=== PATIENT | female | born 2000 | race African-American/Black ===

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

== ENCOUNTER 2022-03-20 20:35 | Emergency (ER) | payer OTHER ==
[2022-03-20 21:14] LABS: #Eosinphils 0.2 thou/uL (0.0-0.7); #Lymphocytes 1.4 thou/uL (1.20-3.40); #Monocytes 0.3 thou/uL (0.11-0.59); #Neutrophils 3.5 thou/uL (1.40-6.50); %Basophils 0.6 % (0.0-1.0); %Lymphocytes 26.5 % (28.0-48.0); %Neutrophils 63.9 % (31.0-61.0); Hemoglobin 11.2 g/dL (12.0-16.0); Mean Corpuscular HGB CONC 34.1 g/dL (32.0-36.0); Mean Corpuscular Hemoglobin 31.7 pg (25.0-35.0); Mean Corpuscular Volume 93.1 fL (78.0-98.0); Mean Platelet Volume 6.9 fL (7.4-10.4); Platelet Count 273 thou/uL (130-400); RBC Distribution Width 11.9 % (11.5-14.5); Red Blood Cell (RBC) Count 3.55 mill/uL (4.00-5.20); White Blood Cell (WBC) Count 5.4 thou/uL (4.8-10.8)
[2022-03-20 21:35] LABS: Acetaminophen Less than 10.0 mcg/mL (10.0-30.0); Alcohol Less than 10 mg/dL (Less than 10); Salicylate Less than 8.0 mg/dL (15.0-30.0)
== END 2022-03-20 22:28 | disposition home or self-care (01) ==
LOC: ERS 20:35
DX: Z34.92 Encounter for supervision of normal pregnancy, unspecified, second trimester (principal); Z3A.16 16 weeks gestation of pregnancy
CPT/HCPCS: 36415; 76856; 80307; 84702; 85025; 93005; 93976

== ENCOUNTER 2022-05-05 14:10 | Emergency (ER) | payer OTHER | END 2022-05-05 16:20 | disposition left against medical advice (07) | LOC: ERS 14:10 | DX: Z53.21 Procedure and treatment not carried out due to patient leaving prior to being seen by health care provider (principal) | CPT/HCPCS: 76815 ==

== ENCOUNTER 2022-07-14 21:42 | Emergency (ER) | payer OTHER | END 2022-07-14 23:19 | disposition short-term general hospital (02) | LOC: ERS 21:42 | DX: O26.893 Other specified pregnancy related conditions, third trimester (principal); R10.9 Unspecified abdominal pain; Z3A.32 32 weeks gestation of pregnancy | CPT/HCPCS: 99284 ==

== ENCOUNTER 2023-01-20 16:10 | Emergency (ER) | payer OTHER | END 2023-01-20 17:07 | disposition left against medical advice (07) | LOC: ERS 16:10 | DX: F41.9 Anxiety disorder, unspecified (principal) ==

== ENCOUNTER 2023-05-21 13:10 | Emergency (ER) | payer OTHER ==
[2023-05-21] MEDS ORDERED: Ondansetron PF 4 MG/2 ML Vial ONE (14:35)
[2023-05-21] MEDS ORDERED: Morphine 4 MG/ML VIAL ONE (14:35)
[2023-05-21 14:45] LABS: #Eosinphils 0.1 thou/uL (0.0-0.7); #Monocytes 0.4 thou/uL (0.11-0.59); #Neutrophils 1.9 thou/uL (1.40-6.50); %Basophils 0.2 % (0.0-1.0); %Eosinophils 2.7 % (0.0-10.0); %Lymphocytes 40.8 % (28.0-48.0); %Monocytes 9.2 % (0.0-4.0); %Neutrophils 47.1 % (31.0-61.0); Hemoglobin 11.1 g/dL (12.0-16.0); Mean Corpuscular HGB CONC 32.8 g/dL (32.0-36.0); Mean Corpuscular Hemoglobin 29.3 pg (25.0-35.0); Mean Corpuscular Volume 89.2 fl (78.0-98.0); Mean Platelet Volume 9.8 fL (7.4-10.4); Platelet Count 296 10x3/uL (130-400); Red Blood Cell (RBC) Count 3.79 mill/uL (4.00-5.20)
[2023-05-21 15:15] LABS: ALT (SGPT) 7 U/L (8-55); AST (SGOT) 14 U/L (5-34); Alkaline Phosphatase 50 U/L (40-100); Anion Gap 12 mmol/L (10-20); BUN (Urea Nitrogen) 12 mg/dL (7.0-18.7); Bilirubin, Total 0.6 mg/dL (0.2-1.2); Calc. Creatinine Clearance 0 mL/min (70-130); Calcium 9.6 mg/dL (7.8-10.44); Carbon Dioxide 23 mmol/L (22-29); Chloride 108 mmol/L (98-107); Estimated GFR 117; Globulin 2.6 g/dL (2.4-3.5); Glucose 99 mg/dL (70-105); Lipase 22 U/L (8-78); Protein, Total 6.6 g/dL (6.0-8.3); Sodium 139 mmol/L (136-145)
[2023-05-21 15:17] LABS: BHCG - Serum Negative (NEGATIVE); Pregs Control Background? CLEAR/WHITE (CLR/WHITE); Pregs Control Bar Appear? YES (CONTROL BAR)
[2023-05-21 15:50] LABS: Bacteria/HPF None Seen HPF (None Seen); Bilirubin Negative (Negative); Blood, Urine Negative (Negative); CAUTI Indications for Culture Pelvic or flank pain; Clarity Clear (Clear); Glucose, Urine (Dipstick) Normal (Negative); Ketone, Urine Negative (Negative); Leukocyte Negative Leu/uL (Negative); Nitrite Negative (Negative); Protein, Urine (Dipstick) Negative (Neg-Trace); RBC/HPF 0-3 HPF (0-3); Urobilinogen Normal mg/dL (Less than 2); WBC/HPF 0-3 HPF (0-3); pH, Urine 7.5 (5.0-9.0)
[2023-05-21 15:56] LABS: Urine Culture Reflex No No
== END 2023-05-21 18:15 ==
LOC: ERS 13:10 → EEVIPCON 13:10 → ERS 18:15
DX: R10.31 Right lower quadrant pain (principal); D72.819 Decreased white blood cell count, unspecified
CPT/HCPCS: 36415; 74177; 80053; 81001; 83690; 84703; 85025; 96374; 96375; J2270; J2405